=== PATIENT | male | born 1975 | race Caucasian/White ===

== ENCOUNTER 2017-05-13 15:31 | Inpatient (IN) | payer BC ==
[~2017-05-13] VITALS: Ht 170.2 cm; Wt 72.2 kg
[2017-05-13 15:37] VITALS: Ht 170.2 cm; Wt 72.2 kg
[2017-05-13 17:09] LABS: BASOPHIL % 0.4 % (0-2); PLATELET COUNT 255 x10^3mcL (130-400); RED CELL DISTRIBUTION WIDTH 13.6 % (11.5-14.5)
[2017-05-13 17:33] LABS: CALCIUM 8.6 mg/dL (8.5-10.1); CARBON DIOXIDE 27.3 mmol/L (21-32); CHLORIDE SERUM 101 mmol/L (98-107); CREATININE SERUM 0.8 mg/dL (0.7-1.3); GFR1 > 60 mL/min; GLUCOSE SERUM 330 mg/dL (74-106); SODIUM SERUM 136 mmol/L (136-145)
[2017-05-13 17:37] LABS: ALBUMIN 3.9 g/dL (3.4-5.0); ALKALINE PHOSPHATASE 49 U/L (46-116); ALT/SGPT 26 U/L (16-63); AST/SGOT 17 U/L (15-37); BILIRUBIN TOTAL 0.5 mg/dL (0.20-1.00); TOTAL PROTEIN, SERUM 7.1 g/dL (6.4-8.2)
[2017-05-13] MEDS ORDERED: LISINOPRIL5 MG PO (19:13)
[2017-05-13] MEDS ORDERED: METFORMIN HCL1000 MG PO (19:14)
[2017-05-13] MEDS ORDERED: ACT30 PO (19:14)
[2017-05-13] MEDS ORDERED: ATORVASTATIN CA10 M1 PO (19:15)
[2017-05-13] MEDS ORDERED: ADVIL200 MG PO (19:16)
[2017-05-13] MEDS ORDERED: ASPIRIN ADULT L81 M5 PO (19:16)
[2017-05-13 19:31] LABS: MAGNESIUM 2.1 mg/dL (1.8-2.4); PHOSPHOROUS 3.6 mg/dL (2.5-4.9)
[2017-05-13 19:32] LABS: CHOLESTEROL/HDL RATIO 1.5
[2017-05-13 19:34] LABS: T3 TOTAL 0.86 ng/mL
[2017-05-13 19:39] LABS: FREE T4 1.1 ng/dL (0.76-1.46); FREE THYROXINE INDEX 2.1 ug/dL (1.4-4.5); T4(THYROXINE) 6.2 ug/dL (4.7-13.3)
[2017-05-13 20:01] VITALS: BP 121/79
[2017-05-13] MEDS ORDERED: GLUCOTROL10 MG PO (20:30)
[2017-05-14 04:56] VITALS: BP 113/63
[2017-05-14 08:38] LABS: BASOPHIL % 0.3 % (0-2); PLATELET COUNT 231 x10^3mcL (130-400); RED CELL DISTRIBUTION WIDTH 13.7 % (11.5-14.5)
[2017-05-14 09:02] LABS: CALCIUM 8.7 mg/dL (8.5-10.1); CARBON DIOXIDE 29.6 mmol/L (21-32); CHLORIDE SERUM 105 mmol/L (98-107); CREATININE SERUM 0.8 mg/dL (0.7-1.3); GFR1 > 60 mL/min; GLUCOSE SERUM 170 mg/dL (74-106); MAGNESIUM 2.1 mg/dL (1.8-2.4); PHOSPHOROUS 2.8 mg/dL (2.5-4.9); POTASSIUM SERUM 4.3 mmol/L (3.5-5.1); SODIUM SERUM 141 mmol/L (136-145)
[2017-05-14 11:52] VITALS: BP 112/70
[2017-05-14 12:30] LABS: microscopic required? NO
[2017-05-14 12:37] LABS: urine erythrocyte NEGATIVE (NEGATIVE)
[2017-05-14 13:14] LABS: AMPHETAMINE QUAL UR NONE DETECTED (NEG <=1000)
== END 2017-05-14 13:02 | disposition home or self-care (01) | DRG 206 ==
LOC: ED 15:31 → DU 18:31
PROVIDERS: Emergency Medicine; Student in an Organized Health Care Education/Training Program
DX: M94.0 Chondrocostal junction syndrome [Tietze] (principal); F10.20 Alcohol dependence, uncomplicated; Y90.9 Presence of alcohol in blood, level not specified; E11.65 Type 2 diabetes mellitus with hyperglycemia; E78.00 Pure hypercholesterolemia, unspecified
CPT/HCPCS: 82962; 83880; 84439; G0480; J1815; J1885; J3010; J7030; Q0092